=== PATIENT | male | born 1985 | race Caucasian/White ===

== ENCOUNTER 2020-11-13 15:46 | Outpatient (REF) | payer MEDICAID, SELFPAY ==
[2020-11-13 16:29] LABS: Influenza A PCR NEGATIVE (Negative); Influenza B PCR NEGATIVE (Negative); Resp Syncy Virus RNA Qual PCR NEGATIVE (Negative); SARS COV2 PCR INHOUSE NEGATIVE (Negative)
== END 2020-11-13 15:47 | disposition home or self-care (01) ==
LOC: HO.LNP 15:46
PROVIDERS: Visit Provider Internal Medicine
DX: Z20.822 Contact with and (suspected) exposure to COVID-19 (principal)
CPT/HCPCS: 0241U

== ENCOUNTER 2022-03-09 13:41 | Outpatient (REF) | payer MEDICAID, SELFPAY ==
--- NOTE | ~2022-03-09 | XR_ITS ---
EXAMINATION: XR CHEST 2 VIEWS CLINICAL INFORMATION: Cough. COMPARISON: Chest radiographs dated 04/12/2019. TECHNIQUE: Frontal and lateral views of the chest were obtained. FINDINGS: The heart, great vessels, pulmonary vasculature and mediastinum are normal. The lungs show no focal infiltrate, effusion or pneumothorax. There is no acute osseous abnormality. There is a moderately severe lower thoracic dextroscoliosis. XR/XR chest 2V IMPRESSION: No active cardiopulmonary disease.
== END 2022-03-09 13:42 | disposition home or self-care (01) ==
LOC: HO.XRAY 13:41
PROVIDERS: PCP Internal Medicine; Visit Provider Internal Medicine
DX: R05.9 Cough, unspecified (principal)
CPT/HCPCS: 71046

== ENCOUNTER 2022-05-16 08:24 | Outpatient (REF) | payer MEDICAID, SELFPAY ==
[2022-05-16 08:41] LABS: MANUAL DIFF FLAG NO
[2022-05-16 09:01] LABS: Basophils Percent Auto 0.3 % (0-2); Eosinophils Absolute Auto 0.2 X10*3/uL (0.0-0.4); Eosinophils Percent Auto 1.6 % (0-4); Hematocrit 44.2 % (42.0-52.0); Hemoglobin 14.2 g/dl (14.0-18.0); Imm Gran Abs Auto 0.03 X10*3/uL (0.00-0.03); Imm Gran Pct Auto 0.3 % (0.0-0.4); Lymphocytes Absolute Auto 3.3 X10*3/uL (1.2-4.9); Lymphocytes Percent Auto 31.2 % (20-40); Mean Corpuscular HGB Conc 32.1 g/dl (31.0-36.0); Mean Corpuscular Volume 90.4 fL (80.0-98.0); Mean Platelet Volume 9.9 fL (9.4-12.4); Monocytes Absolute Auto 0.5 X10*3/uL (0.1-1.2); Monocytes Percent Auto 5.1 % (2-11); Neutrophils Absolute Auto 6.5 x10*3/uL (2.0-8.3); Neutrophils Percent Auto 61.5 % (45-73); Platelet Count 287 X10*3/uL (160-400); Red Blood Count 4.89 X10*6/uL (4.60-5.80); Red Cell Distribution Width 13.1 % (11.0-16.0); White Blood Count 10.6 X10*3/uL (4.8-10.8)
[2022-05-16 09:37] LABS: Alanine Aminotransferase 77 U/L (0-40); Albumin Level 4.8 g/dL (3.5-5.0); Alkaline Phosphatase 82 U/L (39-117); Anion Gap 12 (12-20); Aspartate Amino Transferase 40 U/L (5-37); Bilirubin Total 1.3 mg/dL (0.0-1.0); Blood Urea Nitrogen 16 mg/dL (9-16); Calcium 9.4 mg/dL (8.4-10.2); Carbon Dioxide 30 mmol/L (22-29); Chloride 102 mmol/L (96-108); Cholesterol 233 mg/dL; Estimated Glomerular Filt Rate > 60; Glucose Fasting 88 mg/dL (60-99); HDL Cholesterol 39 mg/dL; LDL Cholesterol Calculated 164 mg/dl; Potassium 4.2 mmol/L (3.3-5.1); Sodium 140 mmol/L (135-145); Total Protein 7.3 g/dL (6.5-8.0); Triglycerides 154 mg/dL
== END 2022-05-16 08:25 | disposition home or self-care (01) ==
LOC: HO.LAB 08:24
PROVIDERS: PCP Internal Medicine; Visit Provider Internal Medicine
DX: E78.00 Pure hypercholesterolemia, unspecified (principal); K21.9 Gastro-esophageal reflux disease without esophagitis; R79.89 Other specified abnormal findings of blood chemistry
CPT/HCPCS: 36415; 80053; 80061; 85025

== ENCOUNTER → 2023-01-24 14:54 | Outpatient (REF) | payer MEDICAID, SELFPAY | LOC: HO.SL 14:54 | PROVIDERS: Visit Provider Internal Medicine | DX: G47.33 Obstructive sleep apnea (adult) (pediatric) (principal); R06.83 Snoring | CPT/HCPCS: 95806 ==

== ENCOUNTER → 2023-01-24 19:00 | Outpatient (BNV) | payer MEDICAID, SELFPAY | PROVIDERS: Visit Provider Internal Medicine | DX: G47.33 Obstructive sleep apnea (adult) (pediatric) (principal) | CPT/HCPCS: 95806 ==

== ENCOUNTER 2023-05-02 14:11 | Outpatient (AMB) | payer MEDICAID, SELFPAY ==
--- NOTE | 2023-05-01 21:08 | A.OFFVIS_ITS ---
Intake Vital Signs 3 05/02/23 14:17 Height 5 ft 10 in Weight 272 lb BMI 39.0 BP 118/64 Blood Pressure Location Rt brachial Position Sitting Pulse 102 H Pulse Source Pulse Oximeter Pulse Oximetry (%) 97 Oxygen Delivery Method Room Air Intake Visit Reasons: pulm eval for cpap Inside Sales Account Representative Required: No Nuclear Power Reactor Operator: Nuclear Power Reactor Operator offered & declined Accompanied by: Father Allergies brompheniramine [From Dimetapp (brompheniramine-PPA)] Adverse Reaction (Verified 05/02/23 14:24) hyperactivity phenylpropanolamine [From Dimetapp (brompheniramine-PPA)] Adverse Reaction (Verified 05/02/23 14:24) hyperactivity Medication List - Last Reconciled 05/02/23 by Jen Gao LPN diphenhydramine-acetaminophen 25-500 mg (Tylenol PM Extra Strength) 1 tab PO BEDTIME PRN melatonin 5 mg PO BEDTIME PRN omeprazole 40 mg PO DAILY venlafaxine 75 mg PO DAILY HPI pulm eval for cpap 2 HPI0 Details Jerald is a pleasant 38 year old male, never smoker, with underlying GERD, Asperger's syndrome and obesity. He was sent by PCP for pulmonary evaluation. He recently had a home sleep study for symptoms of loud snoring, significant day time fatigue and nonrestorative sleep. Results revealed mild obstructive sleep apnea with AHI of 12 and no significant hypoxemia. Patient presents to discuss CPAP therapy, accompanied by father. He denies any respiratory symptoms. He reports father with MARINE, otherwise no pertinent family history. [facility] Social History (Updated 05/02/23 @ 14:27 by Jen Gao LPN) Patient Tobacco Use Status: Never used Tobacco Review of Systems Const Denies chills, Denies excessive sweating, Denies fever(s), Denies headache(s) and Denies night sweats Eyes Denies dry eyes, Denies irritation and Denies itchy eyes ENT Reports Normal hearing present, Denies headache(s), Denies nasal congestion, Denies nasal discharge, Denies post nasal drip and Denies sore throat Card Denies chest pain, Denies chest pain at rest, Denies chest pain with activity, Denies claudication, Denies leg edema, Denies dyspnea, Denies dyspnea on exertion, Denies orthopnea and Denies paroxysmal nocturnal dyspnea Resp Denies chest congestion, Denies cough, Denies excessive phlegm production, Denies pain on inspiration, Denies pain with cough, Denies dyspnea, Denies dyspnea on exertion, Denies stridor and Denies wheezing Musc Denies myalgias Neuro Reports Normal hearing present and Denies headache(s) Endo Denies excessive sweating Robert/Lymph Denies lymphadenopathy Aller/Immun Denies itchy eyes, Denies seasonal rhinorrhea and Denies wheezing Physical Exam Vital Signs: Last Vital Signs Pulse 102 H 05/02/23 14:17 BP 118/64 05/02/23 14:17 Pulse Ox 97 05/02/23 14:17 Oxygen Delivery Method Room Air 05/02/23 14:17 BMI result Body Mass Index 39.0 Const General: cooperative, healthy appearing, comfortable, no acute distress, well developed and alert Nutritional Appearance: obese Orientation/consciousness: patient oriented x3 Limitations: no limitations HEENT Head: Yes normal to inspection, Yes normocephalic and Yes atraumatic Ears: hearing grossly normal bilaterally and external ears normal Eyes General: appearance normal, both eyes and all related structures Eyelids: Yes eyelids normal Sclerae: sclerae normal EOM: EOMs intact bilaterally Neck Neck: Yes normal visual inspection and Yes no lymphadenopathy Lymphatic: no lymphadenopathy noted Chest Chest palpation & inspection: normal inspection of the chest Resp Effort & Inspection: normal respiratory effort, able to speak in complete sentences, no audible wheezes, no cough, no stridor, not tachypneic, no tripod positioning and no use of accessory muscles Auscultation: clear to auscultation bilaterally Cardio Jugular venous distension: no JVD Rate: regular rate Rhythm: regular rhythm Skin Other: warm, dry General skin exam: no rashes or lesions noted Neuro General: patient oriented x3 Cranial nerves: Yes Normal hearing present Cognition (Neuro): normal cognition Gait exam (Neuro): Normal gait present Extrem General: Yes normal to inspection, Yes capillary refill normal, Yes no clubbing, cyanosis or edema and Yes no pedal edema Psych Appearance: grossly normal and well kempt Speech and movement: Normal speech and movement present and Clear speech present Affect: normal affect Attitude: cooperative Thought process: Normal thought process present Thought content: Normal thought content present Insight: Good insight present (Psych) Judgement: Good judgement present (Psych) Results Reviewed Results Reviewed: Assessment & Plan Assessment & Plan (1) Obstructive sleep apnea: Code(s): G47.33 - Obstructive sleep apnea (adult) (pediatric) Plan Reviewed sleep study results with patient which revealed an AHI of 12. Since patient is quite symptomatic, will start CPAP therapy. Will send in prescription to [facility] for APAP mode and pressure settings of 6-16 cm with close monitoring for compliance and benefits. Sleep hygiene education reviewed. He is aware if there are any issues with the mask or CPAP machine, he will call the office. All questions were answered and patient is in agreement of plan. Will follow up in 8-10 weeks or sooner if needed. Coding Level of Care Code New Pt Level 3 (25470) Diagnoses Obstructive sleep apnea G47.33
[2023-05-02 14:17] VITALS: BP 118/64; PULSE 102; O2SAT 97; BMI 39.0
== END 2023-05-02 15:11 | disposition home or self-care (01) ==
PROVIDERS: PCP Internal Medicine; Visit Provider Nurse Practitioner Family
DX: G47.33 Obstructive sleep apnea (adult) (pediatric) (principal)
CPT/HCPCS: 99203

== ENCOUNTER → 2023-05-02 14:11 | Outpatient (BNVA) | payer MEDICAID, SELFPAY | PROVIDERS: Visit Provider Nurse Practitioner Family | DX: G47.33 Obstructive sleep apnea (adult) (pediatric) (principal); K21.9 Gastro-esophageal reflux disease without esophagitis; Z99.89 Dependence on other enabling machines and devices | CPT/HCPCS: 99212 ==

== ENCOUNTER 2023-06-27 13:59 | Outpatient (AMB) | payer MEDICAID, SELFPAY ==
[2023-06-27 14:03] VITALS: BP 112/76; PULSE 88; O2SAT 97; BMI 39.2
--- NOTE | 2023-06-27 14:03 | MHC.OFFVIS ---
Vital Signs 06/27/23 14:03 Height 5 ft 10 in Weight 273 lb 6 oz BMI 39.2 BP 112/76 Blood Pressure Location Rt brachial Position Sitting Pulse 88 Pulse Source Pulse Oximeter Pulse Oximetry (%) 97 Oxygen Delivery Method Room Air Intake Visit Reasons: pulm eval for cpap Allergies brompheniramine [From Dimetapp (brompheniramine-PPA)] Adverse Reaction (Verified 06/27/23 14:05) hyperactivity phenylpropanolamine [From Dimetapp (brompheniramine-PPA)] Adverse Reaction (Verified 06/27/23 14:05) hyperactivity HPI HPI pulm eval for cpap: Details: Jerald is a pleasant 38 year old male, never smoker, with underlying GERD, Asperger's syndrome and obesity. He was sent by PCP for pulmonary evaluation. At the last visit, he had a sleep study that revealed mild MARINE and due to patients symptoms of loud snoring, significant day time fatigue and nonrestorative sleep, he was started on CPAP therapy. His [employer] company is [facility]. Today he presents to review compliance of CPAP therapy. He denies any respiratory symptoms. [facility] Social History Patient Tobacco Use Status: Never used Tobacco Review of Systems Const Denies chills, Denies excessive sweating, Denies fever(s), Denies headache(s) and Denies night sweats Eyes Denies dry eyes, Denies irritation and Denies itchy eyes ENT Reports Normal hearing present, Denies headache(s), Denies nasal congestion, Denies nasal discharge, Denies post nasal drip and Denies sore throat Card Denies chest pain, Denies chest pain at rest, Denies chest pain with activity, Denies claudication, Denies leg edema, Denies dyspnea, Denies dyspnea on exertion, Denies orthopnea and Denies paroxysmal nocturnal dyspnea Resp Denies chest congestion, Denies cough, Denies excessive phlegm production, Denies pain on inspiration, Denies pain with cough, Denies dyspnea, Denies dyspnea on exertion, Denies stridor and Denies wheezing Musc Denies myalgias Neuro Reports Normal hearing present and Denies headache(s) Endo Denies excessive sweating Robert/Lymph Denies lymphadenopathy Aller/Immun Denies itchy eyes, Denies seasonal rhinorrhea and Denies wheezing Physical Exam Vital Signs: Last Vital Signs Pulse 88 06/27/23 14:03 BP 112/76 06/27/23 14:03 Pulse Ox 97 06/27/23 14:03 Oxygen Delivery Method Room Air 06/27/23 14:03 BMI result Body Mass Index 39.2 Const General: cooperative, healthy appearing, comfortable, no acute distress, well developed and alert Nutritional Appearance: obese Orientation/consciousness: patient oriented x3 Limitations: no limitations HEENT Head: Yes normal to inspection, Yes normocephalic and Yes atraumatic Ears: hearing grossly normal bilaterally and external ears normal Eyes General: appearance normal, both eyes and all related structures Eyelids: Yes eyelids normal Sclerae: sclerae normal EOM: EOMs intact bilaterally Neck Neck: Yes normal visual inspection and Yes no lymphadenopathy Lymphatic: no lymphadenopathy noted Chest Chest palpation & inspection: normal inspection of the chest Resp Effort & Inspection: normal respiratory effort, able to speak in complete sentences, no audible wheezes, no cough, no stridor, not tachypneic, no tripod positioning and no use of accessory muscles Auscultation: clear to auscultation bilaterally Cardio Jugular venous distension: no JVD Rate: regular rate Rhythm: regular rhythm Skin Other: warm, dry General skin exam: no rashes or lesions noted Neuro General: patient oriented x3 Cranial nerves: Yes Normal hearing present Cognition (Neuro): normal cognition Gait exam (Neuro): Normal gait present Extrem General: Yes normal to inspection, Yes capillary refill normal, Yes no clubbing, cyanosis or edema and Yes no pedal edema Psych Appearance: grossly normal and well kempt Speech and movement: Normal speech and movement present and Clear speech present Affect: normal affect Attitude: cooperative Thought process: Normal thought process present Thought content: Normal thought content present Insight: Good insight present (Psych) Judgement: Good judgement present (Psych) Assessment & Plan Assessment & Plan (1) Obstructive sleep apnea: Code(s): G47.33 - Obstructive sleep apnea (adult) (pediatric) Category: Medical Plan Reviewed CPAP compliance report which revealed poor compliance. He reports significant difficulty using nasal pillows despite trialing different sizes. He continues to report leakage with use. Advised patient to reach out to [facility] to obtain different masks to trial for better compliance. He was agreeable to this and is motivated to be more compliant. Of note, he has been traveling quite frequently which contributed to his poor compliance. All questions were answered and patient is in agreement of plan. Will follow up in 6-8 weeks or sooner if needed. Coding Level of Care Code Est Pt Level 3 (85373) Diagnoses Obstructive sleep apnea G47.33
== END 2023-06-27 14:59 | disposition home or self-care (01) ==
PROVIDERS: PCP Internal Medicine; Visit Provider Nurse Practitioner Family
DX: G47.33 Obstructive sleep apnea (adult) (pediatric) (principal)
CPT/HCPCS: 99213

== ENCOUNTER → 2023-06-27 13:59 | Outpatient (BNVA) | payer MEDICAID, SELFPAY | PROVIDERS: PCP Internal Medicine; Visit Provider Nurse Practitioner Family | DX: G47.33 Obstructive sleep apnea (adult) (pediatric) (principal) | CPT/HCPCS: 99212 ==

== ENCOUNTER 2023-08-15 14:17 | Outpatient (AMB) | payer MEDICAID, SELFPAY ==
--- NOTE | 2023-08-15 14:18 | A.OFFVIS_ITS ---
Vital Signs 08/15/23 14:19 Height 5 ft 10 in Weight 273 lb BMI 39.2 BP 116/78 Blood Pressure Location Lt brachial Position Sitting Pulse 100 Pulse Source Pulse Oximeter Pulse Oximetry (%) 97 Oxygen Delivery Method Room Air Intake Visit Reasons: Obstructive sleep apnea Allergies brompheniramine [From Dimetapp (brompheniramine-PPA)] Adverse Reaction (Verified 08/15/23 14:21) hyperactivity phenylpropanolamine [From Dimetapp (brompheniramine-PPA)] Adverse Reaction (Verified 08/15/23 14:21) hyperactivity HPI HPI Obstructive sleep apnea: Details: Jerald is a pleasant 38 year old male, never smoker, with underlying MARINE, GERD, Asperger's syndrome and obesity. He was started on CPAP therapy for mild MARINE and persistent loud snoring, significant day time fatigue and nonrestorative sleep. He has had difficulties with compliance due to traveling as well as trialing different masks and recently with URI. He reports productive cough with clear sputum and nasal congestion likely related to viral infection vs allergies. He denies wheezing, dyspnea or chest tightness. He notes that he believes the nasal mask he has recently received will allow him to be more compliant. He also notes that he has been in contact with [facility] in attempts to be more compliant with therapy. He is aware of insurance criteria for compliance. [facility] Social History Patient Tobacco Use Status: Never used Tobacco Review of Systems Const Denies chills, Denies excessive sweating, Denies fever(s), Denies headache(s) and Denies night sweats Eyes Denies dry eyes, Denies irritation and Denies itchy eyes ENT Reports Normal hearing present, Denies headache(s), Denies nasal congestion, Denies nasal discharge, Denies post nasal drip and Denies sore throat Card Denies chest pain, Denies chest pain at rest, Denies chest pain with activity, Denies claudication, Denies leg edema, Denies dyspnea, Denies dyspnea on exertion, Denies orthopnea and Denies paroxysmal nocturnal dyspnea Resp Denies chest congestion, Denies cough, Denies excessive phlegm production, Denies pain on inspiration, Denies pain with cough, Denies dyspnea, Denies dyspnea on exertion, Denies stridor and Denies wheezing Musc Denies myalgias Neuro Reports Normal hearing present and Denies headache(s) Endo Denies excessive sweating Robert/Lymph Denies lymphadenopathy Aller/Immun Denies itchy eyes, Denies seasonal rhinorrhea and Denies wheezing Physical Exam Vital Signs: Last Vital Signs Pulse 100 08/15/23 14:19 BP 116/78 08/15/23 14:19 Pulse Ox 97 08/15/23 14:19 Oxygen Delivery Method Room Air 08/15/23 14:19 BMI result Body Mass Index 39.2 Const General: cooperative, healthy appearing, comfortable, no acute distress, well developed and alert Nutritional Appearance: obese Orientation/consciousness: patient oriented x3 Limitations: no limitations HEENT Head: Yes normal to inspection, Yes normocephalic and Yes atraumatic Ears: hearing grossly normal bilaterally and external ears normal Eyes General: appearance normal, both eyes and all related structures Eyelids: Yes eyelids normal Sclerae: sclerae normal EOM: EOMs intact bilaterally Neck Neck: Yes normal visual inspection and Yes no lymphadenopathy Lymphatic: no lymphadenopathy noted Chest Chest palpation & inspection: normal inspection of the chest Resp Effort & Inspection: normal respiratory effort, able to speak in complete sentences, no audible wheezes, no cough, no stridor, not tachypneic, no tripod positioning and no use of accessory muscles Auscultation: clear to auscultation bilaterally Cardio Jugular venous distension: no JVD Rate: regular rate Rhythm: regular rhythm Skin Other: warm, dry General skin exam: no rashes or lesions noted Neuro General: patient oriented x3 Cranial nerves: Yes Normal hearing present Cognition (Neuro): normal cognition Gait exam (Neuro): Normal gait present Extrem General: Yes normal to inspection, Yes capillary refill normal, Yes no clubbing, cyanosis or edema and Yes no pedal edema Psych Appearance: grossly normal and well kempt Speech and movement: Normal speech and movement present and Clear speech present Affect: normal affect Attitude: cooperative Thought process: Normal thought process present Thought content: Normal thought content present Insight: Good insight present (Psych) Judgement: Good judgement present (Psych) Assessment & Plan Assessment & Plan (1) Obstructive sleep apnea: Code(s): G47.33 - Obstructive sleep apnea (adult) (pediatric) Category: Medical Plan Reviewed CPAP compliance report which again revealed poor compliance. He previously reported significant difficulty using nasal pillows and had switched to a different nasal mask with better fit/comfort. He is aware of insurance compliance criteria and aware he has not been meeting this criteria but is motivated to be more compliant, now with the new mask. All questions were answered and patient is in agreement of plan. Will follow up in 6-8 weeks or sooner if needed. Coding Level of Care Code Est Pt Level 3 (67038) Diagnoses Obstructive sleep apnea G47.33
[2023-08-15 14:19] VITALS: BP 116/78; PULSE 100; O2SAT 97; BMI 39.2
== END 2023-08-15 14:44 | disposition home or self-care (01) ==
PROVIDERS: PCP Internal Medicine; Visit Provider Nurse Practitioner Family
DX: G47.33 Obstructive sleep apnea (adult) (pediatric) (principal)
CPT/HCPCS: 99213

== ENCOUNTER → 2023-08-15 14:17 | Outpatient (BNVA) | payer MEDICAID, SELFPAY | PROVIDERS: PCP Internal Medicine; Visit Provider Nurse Practitioner Family | DX: G47.33 Obstructive sleep apnea (adult) (pediatric) (principal) | CPT/HCPCS: 99212 ==

== ENCOUNTER 2023-12-01 15:11 | Outpatient (AMB) | payer MEDICAID, SELFPAY ==
--- NOTE | 2023-12-01 15:13 | A.OFFVIS_ITS ---
Vital Signs 12/01/23 15:14 Height 5 ft 10 in Weight 278 lb 6 oz BMI 39.9 BP 120/76 Blood Pressure Location Rt brachial Position Sitting Pulse 101 H Pulse Source Pulse Oximeter Pulse Oximetry (%) 94 Oxygen Delivery Method Room Air Intake Visit Reasons: Obstructive sleep apnea Allergies brompheniramine [From Dimetapp (brompheniramine-PPA)] Adverse Reaction (Verified 12/01/23 15:16) hyperactivity phenylpropanolamine [From Dimetapp (brompheniramine-PPA)] Adverse Reaction (Verified 12/01/23 15:16) hyperactivity HPI HPI Obstructive sleep apnea: Details: Jerald is a pleasant 38 year old male, never smoker, with underlying MARINE, GERD, Asperger's syndrome and obesity. He was started on CPAP therapy for mild MARINE and persistent loud snoring, significant day time fatigue and nonrestorative sleep. He continues to have difficulties with compliance due to sensory issues as well as nasal congestion. He reports that recently he has been able to use for longer stretches at nighttime as he is getting use to therapy and his new mask. He feels as though his current mask has been the most comfortable with less sensory complaints. He does note that his left nostril always seems congested and feels this is contributing to lack of compliance. He is requesting referral to ENT for evaluation. He currently denies any respiratory symptoms. He denies any visits to urgent care hospitalizations related to respiratory complaints. [facility] Social History Patient Tobacco Use Status: Never used Tobacco Review of Systems Const Denies chills, Denies excessive sweating, Denies fever(s), Denies headache(s) and Denies night sweats Eyes Denies dry eyes, Denies irritation and Denies itchy eyes ENT Reports Normal hearing present, Denies headache(s), Denies post nasal drip and Denies sore throat Card Denies chest pain, Denies chest pain at rest, Denies chest pain with activity, Denies claudication, Denies leg edema, Denies dyspnea, Denies dyspnea on exertion, Denies orthopnea and Denies paroxysmal nocturnal dyspnea Resp Denies chest congestion, Denies cough, Denies excessive phlegm production, Denies pain on inspiration, Denies pain with cough, Denies dyspnea, Denies dyspnea on exertion, Denies stridor and Denies wheezing Musc Denies myalgias Neuro Reports Normal hearing present and Denies headache(s) Endo Denies excessive sweating Robert/Lymph Denies lymphadenopathy Aller/Immun Denies itchy eyes, Denies seasonal rhinorrhea and Denies wheezing Physical Exam Vital Signs: Last Vital Signs Pulse 101 H 12/01/23 15:14 BP 120/76 12/01/23 15:14 Pulse Ox 94 12/01/23 15:14 Oxygen Delivery Method Room Air 12/01/23 15:14 BMI result Body Mass Index 39.9 Const General: cooperative, healthy appearing, comfortable, no acute distress, well developed and alert Nutritional Appearance: obese Orientation/consciousness: patient oriented x3 Limitations: no limitations HEENT Head: Yes normal to inspection, Yes normocephalic and Yes atraumatic Ears: hearing grossly normal bilaterally and external ears normal Eyes General: appearance normal, both eyes and all related structures Eyelids: Yes eyelids normal Sclerae: sclerae normal EOM: EOMs intact bilaterally Neck Neck: Yes normal visual inspection and Yes no lymphadenopathy Lymphatic: no lymphadenopathy noted Chest Chest palpation & inspection: normal inspection of the chest Resp Effort & Inspection: normal respiratory effort, able to speak in complete sentences, no audible wheezes, no cough, no stridor, not tachypneic, no tripod positioning and no use of accessory muscles Auscultation: clear to auscultation bilaterally Cardio Jugular venous distension: no JVD Rate: regular rate Rhythm: regular rhythm Skin Other: warm, dry General skin exam: no rashes or lesions noted Neuro General: patient oriented x3 Cranial nerves: Yes Normal hearing present Cognition (Neuro): normal cognition Gait exam (Neuro): Normal gait present Extrem General: Yes normal to inspection, Yes capillary refill normal, Yes no clubbing, cyanosis or edema and Yes no pedal edema Psych Appearance: grossly normal and well kempt Speech and movement: Normal speech and movement present and Clear speech present Affect: normal affect Attitude: cooperative Thought process: Normal thought process present Thought content: Normal thought content present Insight: Good insight present (Psych) Judgement: Good judgement present (Psych) Assessment & Plan Assessment & Plan (1) Obstructive sleep apnea: Code(s): G47.33 - Obstructive sleep apnea (adult) (pediatric) Category: Medical (2) Chronic sinusitis: Code(s): J32.9 - Chronic sinusitis, unspecified Category: Medical Plan Reviewed CPAP compliance report which again revealed poor compliance. He is aware of insurance compliance criteria and aware he has not been meeting this criteria but is motivated to be more compliant, now with the new mask and less sensory complaints. He also notes chronic sinus issues preventing him from being more compliant requesting referral to ENT. Will enter this. All questions were answered and patient is in agreement of plan. Will follow up in 6-8 weeks or sooner if needed. Orders: Referrals Ear/Nose/Throat Referral J32.9 - Chronic sinusitis, unspecified Coding Level of Care Code Est Pt Level 3 (90312) Diagnoses Obstructive sleep apnea G47.33 Chronic sinusitis J32.9
[2023-12-01 15:14] VITALS: BP 120/76; PULSE 101; O2SAT 94; BMI 39.9
== END 2023-12-01 15:40 | disposition home or self-care (01) ==
PROVIDERS: PCP Internal Medicine; Visit Provider Nurse Practitioner Family
DX: G47.33 Obstructive sleep apnea (adult) (pediatric) (principal); J32.9 Chronic sinusitis, unspecified
CPT/HCPCS: 99213

== ENCOUNTER → 2023-12-01 15:11 | Outpatient (BNVA) | payer MEDICAID, SELFPAY | PROVIDERS: PCP Internal Medicine; Visit Provider Nurse Practitioner Family | DX: G47.33 Obstructive sleep apnea (adult) (pediatric) (principal); J32.9 Chronic sinusitis, unspecified | CPT/HCPCS: 99212 ==

== ENCOUNTER 2024-03-01 15:15 | Outpatient (AMB) | payer MEDICAID, SELFPAY ==
[2024-03-01 15:18] VITALS: BP 124/62; PULSE 100; O2SAT 97; BMI 39.9
--- NOTE | 2024-03-01 15:18 | MHC.OFFVIS ---
Vital Signs 03/01/24 15:18 Height 5 ft 10 in Weight 278 lb BMI 39.9 BP 124/62 Blood Pressure Location Lt brachial Position Sitting Pulse 100 Pulse Source Pulse Oximeter Pulse Oximetry (%) 97 Oxygen Delivery Method Room Air Intake Visit Reasons: Obstructive sleep apnea Assembly Person Required: No Community Engagement Representative: Community Engagement Representative offered & declined Accompanied by: Self / Same As Patient Allergies brompheniramine [From Dimetapp (brompheniramine-PPA)] Adverse Reaction (Verified 03/01/24 15:20) hyperactivity phenylpropanolamine [From Dimetapp (brompheniramine-PPA)] Adverse Reaction (Verified 03/01/24 15:20) hyperactivity Medication List - Last Reconciled 03/01/24 by Jen Gao LPN cetirizine (Zyrtec) 10 mg PO DAILY PRN cholecalciferol (vitamin D3) 75 mcg PO DAILY diphenhydramine-acetaminophen 25-500 mg (Tylenol PM Extra Strength) 1 tab PO BEDTIME PRN melatonin 5 mg PO BEDTIME PRN omeprazole 40 mg PO DAILY venlafaxine 75 mg PO DAILY HPI HPI Obstructive sleep apnea: Details: Jerald is a pleasant 38 year old male, never smoker, with underlying MARINE, GERD, Asperger's syndrome and obesity. He has been using CPAP therapy for mild MARINE as he reported persistent loud snoring, significant day time fatigue and nonrestorative sleep. When using consistently he has noticed improvements in daytime fatigue, taking less naps however continues to have difficulties with compliance due to sensory issues as well as nasal congestion. He has been using nasal spray with moderate effect and has an upcoming evaluation with ENT. He also noted that in January he had the flu and was unable to use. He is motivated to be compliant. At this time, he denies any respiratory symptoms. He denies any visits to urgent care hospitalizations related to respiratory complaints. [facility] Social History Patient Tobacco Use Status: Never used Tobacco Review of Systems Const Denies chills, Denies excessive sweating, Denies fever(s), Denies headache(s) and Denies night sweats Eyes Denies dry eyes, Denies irritation and Denies itchy eyes ENT Reports Normal hearing present, Denies headache(s), Reports nasal congestion, Denies nasal discharge, Denies post nasal drip and Denies sore throat Card Denies chest pain, Denies chest pain at rest, Denies chest pain with activity, Denies claudication, Denies leg edema, Denies dyspnea, Denies dyspnea on exertion, Denies orthopnea and Denies paroxysmal nocturnal dyspnea Resp Denies chest congestion, Denies cough, Denies excessive phlegm production, Denies pain on inspiration, Denies pain with cough, Denies dyspnea, Denies dyspnea on exertion, Denies stridor and Denies wheezing Musc Denies myalgias Neuro Reports Normal hearing present and Denies headache(s) Endo Denies excessive sweating Robert/Lymph Denies lymphadenopathy Aller/Immun Denies itchy eyes, Denies seasonal rhinorrhea and Denies wheezing Physical Exam Vital Signs: Last Vital Signs Pulse 100 03/01/24 15:18 BP 124/62 03/01/24 15:18 Pulse Ox 97 03/01/24 15:18 Oxygen Delivery Method Room Air 03/01/24 15:18 BMI result Body Mass Index 39.9 Const General: cooperative, healthy appearing, comfortable, no acute distress, well developed and alert Nutritional Appearance: obese Orientation/consciousness: patient oriented x3 Limitations: no limitations HEENT Head: Yes normal to inspection, Yes normocephalic and Yes atraumatic Ears: hearing grossly normal bilaterally and external ears normal Eyes General: appearance normal, both eyes and all related structures Eyelids: Yes eyelids normal Sclerae: sclerae normal EOM: EOMs intact bilaterally Neck Neck: Yes normal visual inspection and Yes no lymphadenopathy Lymphatic: no lymphadenopathy noted Chest Chest palpation & inspection: normal inspection of the chest Resp Effort & Inspection: normal respiratory effort, able to speak in complete sentences, no audible wheezes, no cough, no stridor, not tachypneic, no tripod positioning and no use of accessory muscles Auscultation: clear to auscultation bilaterally Cardio Jugular venous distension: no JVD Rate: regular rate Rhythm: regular rhythm Skin Other: warm, dry General skin exam: no rashes or lesions noted Neuro General: patient oriented x3 Cranial nerves: Yes Normal hearing present Cognition (Neuro): normal cognition Gait exam (Neuro): Normal gait present Extrem General: Yes normal to inspection, Yes capillary refill normal, Yes no clubbing, cyanosis or edema and Yes no pedal edema Psych Appearance: grossly normal and well kempt Speech and movement: Normal speech and movement present and Clear speech present Affect: normal affect Attitude: cooperative Thought process: Normal thought process present Thought content: Normal thought content present Insight: Good insight present (Psych) Judgement: Good judgement present (Psych) Assessment & Plan Assessment & Plan (1) Obstructive sleep apnea: Code(s): G47.33 - Obstructive sleep apnea (adult) (pediatric) Category: Medical (2) Chronic sinusitis: Code(s): J32.9 - Chronic sinusitis, unspecified Category: Medical Plan Reviewed CPAP compliance report which again revealed poor compliance. He is aware of insurance compliance criteria and aware he has not been meeting this criteria but is motivated to be more compliant, he again is trialing a different mask which he believes will allow him to be more compliant. He continues to report chronic sinus issues preventing him from being more compliant and will be evaluated by ENT. All questions were answered and patient is in agreement of plan. Will follow up in 3 months or sooner if needed. Coding Level of Care Code Est Pt Level 4 (11981) Diagnoses Obstructive sleep apnea G47.33 Chronic sinusitis J32.9
--- OUTSIDE RECORDS SUMMARY | 2024-03-01 16:20 | XMS_ITS | Clinical Summary ---
Author Organization [facility] Address [address] [place] [phone] Phone Care Team Providers Care Inventory Control Associate Name Role Phone Jordan Quinones MD Primary Care Provider Unavailabl e Immunizations Name Administration Dates Next Due DTP 09/05/1996, 7,06/05/1996,02/05,01/05/1990 Hep B, ped/adol 05/06/1998,02/05/1998,01/05/1998 Hib (PRP-T) 01/05/1990 IPV 08/05/1996, 7,02/06/1992,08/05 MMR 06/02/1998,11/05/1997 Meningococcal Conj (Menactra) MCV4P 12/08/2005 Td (adult) (Tenivac), 5 Lf t etanus toxoid, PF, adsorbed 06/02/1998 Family History Relation Name Status Comments Father Alive Father: Elevate d cholesterol Mother Alive Mother: Multipl e Sclerosis / Migraines/ Obesity Sister Alive Sister: Diabete s mellitus Social History Tobacco Use Types Packs/Day Years Used Date Smoking Tobacco: Never Assessed Sex and Gender Information Value Date Recorded Sex Assigned at Not on file Legal Sex Male 4:15 PM EDT Gender Identity Not on file Sexual Orientation Not on file Plan of Treatment Health Maintenance Due Date Last Done Comments Varicella Vaccines (1 of 2 - 13+ 2-dose series) 1999 Consider Men B Vaccine (1 of 2 - Bexsero 2-dose series) 2002 DTaP,Tdap,and Td Vaccines (7 - Tdap) 06/02/2008 06/02/1998, 09/05/1996, 08/05/1996, Additional history exists Influenza Vaccines (#1) 2023 COVID-19 Vaccine ( season) 2023 HIB Vaccines Completed 01/05/1990 IPV Vaccines Completed 08/05/1996, 05/09, 02/06/1992, Additional history exists Hepatitis B Vaccines Completed 05/06/1998, 02/05/1998, 01/05/1998 MMR Vaccines Completed 06/02/1998, 11/05/1997 Meningococcal Vaccine Aged Out 12/08/2005 No myrtle alvaro eligible based on patient's age to complete this topic HPV Vaccines Aged Out No longer eligi ble based on patient's age to complete this topic Hepatitis A Vaccines Aged Out No long er eligible based on patient's age to complete this topic Men B Vaccine Aged Out No longer elig ible based on patient's age to complete this topic Pneumococcal Vaccine Aged Out No long er eligible based on patient's age to complete this topic Care Teams Inventory Control Associate Relationship Specialty Start Date End Date Jordan Quinones MD PCP - General 09/16/16
--- OUTSIDE RECORDS SUMMARY | 2024-03-01 16:20 | XMS_ITS | Encounter Summary ---
Author Organization [facility] Address [address] [place] [phone] Phone Care Team Providers Care Marriage And Family Counselor Name Role Phone Jordan Quinones MD Primary Care Provider Unavailabl e Encounter Details Date Type Department Care Team (Late st Contact Info) Description 07/23/2009 Documentation EM Family Medicine [address] [place] [address] Family Medicine, Physician [address] [place], [place] [phone] Social History Tobacco Use Types Packs/Day Years Used Date Smoking Tobacco: Never Assessed Sex and Gender Information Value Date Recorded Sex Assigned at Not on file Legal Sex Male 4:15 PM EDT Gender Identity Not on file Sexual Orientation Not on file documented as of this encounter Plan of Treatment Not on file documented as of this encounter Visit Diagnoses Not on filedocumented in this encounter Care Teams Marriage And Family Counselor Relationship Specialty Start Date End Date Jordan Quinones MD PCP - General 09/16/16 documented as of this encounter
--- OUTSIDE RECORDS SUMMARY | 2024-03-01 16:20 | XMS_ITS | Encounter Summary ---
Author Organization [facility] Address [address] [place] [phone] Phone Care Team Providers Care Compensation Director Name Role Phone Jordan Quinones MD Primary Care Provider Unavailabl e Encounter Details Date Type Department Care Team (Late st Contact Info) Description 09/22/2016 Conversion Encounter [facility] - [address] [address] Social History Tobacco Use Types Packs/Day Years [...] on filedocumented in this encounter Care Teams Compensation Director Relationship Specialty Start Date End Date Jordan Quinones MD PCP - General 09/16/16 documented as of this encounter
== END 2024-03-01 16:02 | disposition home or self-care (01) ==
PROVIDERS: PCP Internal Medicine; Visit Provider Nurse Practitioner Family
DX: G47.33 Obstructive sleep apnea (adult) (pediatric) (principal); J32.9 Chronic sinusitis, unspecified
CPT/HCPCS: 99214

== ENCOUNTER → 2024-03-01 15:15 | Outpatient (BNVA) | payer MEDICAID, SELFPAY | PROVIDERS: PCP Internal Medicine; Visit Provider Nurse Practitioner Family | DX: G47.33 Obstructive sleep apnea (adult) (pediatric) (principal); J32.9 Chronic sinusitis, unspecified | CPT/HCPCS: 99212 ==

== ENCOUNTER 2024-07-09 15:34 | Outpatient (AMB) | payer MEDICAID, SELFPAY ==
--- NOTE | 2024-07-09 15:36 | MHC.PC.OV ---
Vital Signs 07/09/24 15:41 Height 5 ft 10 in Weight 122.924 kg BMI 38.9 BP 110/86 Respiration 14 Pulse 92 Pulse Source Pulse Oximeter Temp 96.4 F L Temp Source Temporal Artery Scan Pulse Oximetry (%) 98 Oxygen Delivery Method Room Air Intake Visit Reasons: Routine/ Trouble hearing Director Of Academic Support Required: No Accompanied by: Self / Same As Patient Allergies brompheniramine [From Dimetapp (brompheniramine-PPA)] Adverse Reaction (Verified 07/09/24 15:37) hyperactivity phenylpropanolamine [From Dimetapp (brompheniramine-PPA)] Adverse Reaction (Verified 07/09/24 15:37) hyperactivity Medication List - Last Reconciled 07/09/24 by YARELY Millard cetirizine (Zyrtec) 10 mg PO DAILY PRN cholecalciferol (vitamin D3) 75 mcg PO DAILY diphenhydramine-acetaminophen 25-500 mg (Tylenol PM Extra Strength) 1 tab PO BEDTIME PRN melatonin 5 mg PO BEDTIME PRN omeprazole 40 mg PO DAILY venlafaxine 75 mg PO DAILY HPI HPI Comments History of Present Illness Details 39-year-old male with history of Asperger's, elevated LFTs, obstructive sleep apnea, chronic sinusitis, hyperlipidemia, and depression/anxiety presents to the office today for management of chronic conditions as well as to establish care. He has been following with pulmonology regarding his obstructive sleep apnea is not always compliant with CPAP usage. He was referred to ENT for his chronic sinusitis but has not yet made an appointment. He does report ongoing postnasal drips which affects him negatively and occasionally uses Flonase as well as Zyrtec. He states he is beginning efforts towards weight loss eating healthier with light exercise. He is reporting muffled hearing of the left ear. No otalgia or otorrhea ROS: General: No fevers, malaise, unintentional weight loss HEENT: see hpi Cardiovascular: No chest pain, palpitations, or leg edema Respiratory: No shortness of breath, wheezing, cough GI: No abdominal pain, nausea, vomiting, diarrhea, constipation, melena, hematochezia : No dysuria, hematuria, increased urinary frequency, decreased urinary output MSK: No myalgia, back pain Neuro: No headaches, weakness, paresthesias Skin: No rashes or lesions EXAM: Constitutional - Awake and Alert, No apparent distress Eyes - PERRLA, EOMI Ears- external ears normal, bilateral cerumen impaction obstructing visual of the tympanic membranes Cardiovascular - S1S2, RRR, No edema Respiratory - Normal lung expansion, Normal respiratory effort, No respiratory distress, CTA bilaterally Extremities - no calf tenderness bilaterally, no swelling Skin - Warm/Dry Neurological - Alert & oriented x3 Psychological - Appropriate affect [facility] Medical History (Updated 07/10/24 @ 12:36 by YARELY Millard) Elevated LFTs Asperger's disorder Chronic sinusitis Obstructive sleep apnea Hyperlipidemia Social History Patient Tobacco Use Status: Never used Tobacco Questionnaire PHQ-9 Over the last 2 weeks, how often have you been bothered by any of the following problems? 1. Little interest or pleasure in doing things: several days 2. Feeling down, depressed, or hopeless: not at all 3. Trouble falling or staying asleep, or sleeping too much: more than half the days 4. Feeling tired or having little energy: more than half the days 5. Poor appetite or overeating: several days 6. Feeling bad about yourself - or that you are a failure or have let yourself or your family down: not at all 7. Trouble concentrating on things, such as reading the newspaper or watching television: not at all 8. Moving or speaking so slowly that other people could have noticed. Or the opposite - being so fidgety or restless that you have been moving around a lot more than usual: not at all 9. Thoughts that you would be better off or of hurting yourself in some way: not at all Total score: 6 Source: Developed by Drs. Juni Morgan, Emily Hua, Paul Guzman and colleagues, with an educational ashley from [employer]. LEI-7 AMB Questionnaire LEI-7 Date LEI - 7 assessed: 07/09/24 Feeling nervous, anxious, or on edge: 0 = Not at all Not being able to stop or control worryin = Not at all Worrying too much about different things: 0 = Not at all Trouble relaxin = Not at all Being so restless that it is hard to sit still: 0 = Not at all Becoming easily annoyed or irritable: 0 = Not at all Feeling afraid as if something awful might happen: 0 = Not at all Total LEI-7 score (0-4 normal; 5-9 mild; 10-14 moderate; 15-21 severe): 0 Source: Developed by Drs. Juni Morgan, Emily Hua, Paul Guzman and colleagues, with an educational ashley from [employer]. Physical exam (Primary Care) Vital Signs: Last Vital Signs Temp 96.4 F L 07/09/24 15:41 Pulse 92 07/09/24 15:41 Resp 14 07/09/24 15:41 BP 110/86 07/09/24 15:41 Pulse Ox 98 07/09/24 15:41 Oxygen Delivery Method Room Air 07/09/24 15:41 BMI result Body Mass Index 38.9 Tobacco/Smoking Status: Tobacco use Status Patient Tobacco Use Status Never used Tobacco 07/09/24 15:43 PHQ-9: PHQ-9 Score PHQ-9: Total score 6 07/09/24 16:28 Coding Level of Care Code New Pt Level 4 (80522) Complex EM visit Add On G2211 Diagnoses Hyperlipidemia E78.5 Chronic sinusitis J32.9 Obstructive sleep apnea G47.33 Cerumen impaction H61.20 Elevated LFTs R79.89 Assessment & Plan Assessment & Plan (1) Hyperlipidemia: Code(s): E78.5 - Hyperlipidemia, unspecified Category: Medical Plan: Lipid panel ordered. Recommend diet low in saturated fats and highly processed foods. Increase exercise efforts to facilitate weight loss (2) Chronic sinusitis: Code(s): J32.9 - Chronic sinusitis, unspecified Category: Medical Plan: Continue with Zyrtec and Flonase. Advised to schedule follow-up with ENT for further evaluation as this may also be affecting his MARINE (3) Obstructive sleep apnea: Code(s): G47.33 - Obstructive sleep apnea (adult) (pediatric) Category: Medical Plan: Continue following with pulmonology. Compliance with CPAP is stressed. Weight loss efforts also encouraged (4) Cerumen impaction: Code(s): H61.20 - Impacted cerumen, unspecified ear Category: Medical Plan: Debrox drops prescribed. Patient to return for cerumen irrigation. 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 Will reassess liver panel and check ultrasound of the right upper quadrant as well Plan Follow-up for ear lavage. Labs to be completed prior to visit today. Orders: Orders Hemoglobin A1c 07/09/24 E78.5 - Hyperlipidemia, unspecified, F84.5 - Asperger's syndrome, R79.89 - Other specified abnormal findings of blood chemistry Ferritin 07/09/24 E78.5 - Hyperlipidemia, unspecified, F84.5 - Asperger's syndrome, R79.89 - Other specified abnormal findings of blood chemistry Liver Panel 07/09/24 E78.5 - Hyperlipidemia, unspecified, F84.5 - Asperger's syndrome, R79.89 - Other specified abnormal findings of blood chemistry Basic Metabolic Panel 07/09/24 E78.5 - Hyperlipidemia, unspecified, F84.5 - Asperger's syndrome, R79.89 - Other specified abnormal findings of blood chemistry Complete Blood Count Auto Diff 07/09/24 E78.5 - Hyperlipidemia, unspecified, F84.5 - Asperger's syndrome, R79.89 - Other specified abnormal findings of blood chemistry Lipid Panel 07/09/24 E78.5 - Hyperlipidemia, unspecified, F84.5 - Asperger's syndrome, R79.89 - Other specified abnormal findings of blood chemistry US abdomen limited 07/09/24 R79.89 - Other specified abnormal findings of blood chemistry Medications: New carbamide peroxide 6.5% (Debrox) 5 drps otic (ear) left Q12H 15 mL 0RF 4 days
[2024-07-09 15:41] VITALS: BP 110/86; PULSE 92; RESP 14; TEMP 35.8; O2SAT 98; BMI 38.9
--- OUTSIDE RECORDS SUMMARY | 2024-07-09 16:57 | XMS_ITS | Clinical Summary ---
Author Organization [facility] Address [address] [place] [phone] Phone Care Team Providers Care Maintenance Services Dispatcher Name Role Phone Jordan Quinones MD Primary Care Provider Unavailabl e Immunizations Immunization Administration Dates Next Due DTP 09/05/1996, 7,06/05/1996,02/05,01/05/1990 [...] of 2 - 13+ 2-dose series) 1999 DTaP,Tdap,and Td Vaccines (7 - Tdap) 06/02/2008 06/02/1998, 09/05/1996, 08/05/1996, Additional history exists Influenza Vaccines (#1) 2023 COVID-19 Vaccine ( - 2023- season) 2023 HIB Vaccines Completed 01/05/1990 IPV [...] age to complete this topic Care Teams Maintenance Services Dispatcher Relationship Specialty Start Date End Date Jordan Quinones MD PCP - General 09/16/16
== END 2024-07-09 16:06 | disposition home or self-care (01) ==
LOC: HO.HMCHD 15:35
PROVIDERS: PCP Internal Medicine; Visit Provider Physician Assistant
DX: E78.5 Hyperlipidemia, unspecified (principal); J32.9 Chronic sinusitis, unspecified; G47.33 Obstructive sleep apnea (adult) (pediatric); H61.22 Impacted cerumen, left ear; R79.89 Other specified abnormal findings of blood chemistry

== ENCOUNTER → 2024-07-09 15:34 | Outpatient (BNVA) | payer MEDICAID, SELFPAY | PROVIDERS: PCP Internal Medicine; Visit Provider Physician Assistant | DX: G47.33 Obstructive sleep apnea (adult) (pediatric) (principal); E78.5 Hyperlipidemia, unspecified; J32.9 Chronic sinusitis, unspecified; H61.20 Impacted cerumen, unspecified ear; R79.89 Other specified abnormal findings of blood chemistry; F84.5 Asperger's syndrome; Z99.89 Dependence on other enabling machines and devices | CPT/HCPCS: 99212 ==

== ENCOUNTER 2024-07-15 13:53 | Outpatient (AMB) | payer MEDICAID, SELFPAY ==
--- NOTE | 2024-07-15 13:54 | A.OFFPC_ITS ---
Vital Signs 07/15/24 13:56 Height 5 ft 10 in Weight 122 kg BMI 38.6 BP 116/82 Respiration 14 Pulse 94 Pulse Source Pulse Oximeter Temp 97.9 F Pulse Oximetry (%) 96 Oxygen Delivery Method Room Air Intake Visit Reasons: 5 Day F/U Ear Wax Cleaning Manager Commission Required: No Accompanied by: Self / Same As Patient Allergies brompheniramine [From Dimetapp (brompheniramine-PPA)] Adverse Reaction (Verified 07/15/24 13:56) hyperactivity phenylpropanolamine [From Dimetapp (brompheniramine-PPA)] Adverse Reaction (Verified 07/15/24 13:56) hyperactivity HPI HPI Comments History of Present Illness Details 39 year old male presents to the office due to cerumen impaction. Was seen in the office last week and noted to have bilateral cerumen impaction L>R with associated muffled hearing. Has been using debrox drops. ROS: HEENT- see hpi EXAM: Constitutional - Awake and Alert, No apparent distress Ears - external ears normal. L ear with impacted cerumen obstructing visual of TM. R canal with partial impaction, some visual of the TM which appears pearly lewis and in tact Skin - Warm/Dry Neurological - Alert & oriented x3, CN II-XII in tact, 5/5 strength BUE and BLE Psychological - Appropriate affect [facility] Medical History (Updated 07/15/24 @ 14:21 by YARELY Millard) Elevated LFTs Asperger's disorder Chronic sinusitis Obstructive sleep apnea Hyperlipidemia Social History Patient Tobacco Use Status: Never used Tobacco Questionnaire LEI-7 AMB Questionnaire LEI-7 Date LEI - 7 assessed: 07/09/24 Source: Developed by Drs. Juni Morgan, Emily Hua, Paul Guzman and colleagues, with an educational ashley from [employer]. Physical exam (Primary Care) Vital Signs: Last Vital Signs Temp 97.9 F 07/15/24 13:56 Pulse 94 07/15/24 13:56 Resp 14 07/15/24 13:56 BP 116/82 07/15/24 13:56 Pulse Ox 96 07/15/24 13:56 Oxygen Delivery Method Room Air 07/15/24 13:56 BMI result Body Mass Index 38.6 Tobacco/Smoking Status: Tobacco use Status Patient Tobacco Use Status Never used Tobacco 07/15/24 13:58 Office Procedures Cerumen Removal From which ear canal was the cerumen removed: right Removal: irrigation and cerumen loop/spoon Notes: no complications [id number] Wax Removal by Spoon/Curette Coding Level of Care Code Est Pt Level 3 (44281) Diagnoses Cerumen impaction H61.20 Decreased hearing H91.90 CPT Codes Office Procedure - CPT: 02934-[id number] Wax Removal by Spoon/Curette ([id number]) Assessment & Plan Assessment & Plan (1) Cerumen impaction: Code(s): H61.20 - Impacted cerumen, unspecified ear Category: Medical Plan: Removed using lavage as well as curette with good effect. TMs are in tact, no significant erythema or evidence of trauma. Pt tolerated well, no lightheadedness/vertigo/pain. Improvement in hearing (2) Decreased hearing: Code(s): H91.90 - Unspecified hearing loss, unspecified ear Category: Medical Plan: Improvement following cerumen removal
[2024-07-15 13:56] VITALS: BP 116/82; PULSE 94; RESP 14; TEMP 36.6; O2SAT 96; BMI 38.6
--- OUTSIDE RECORDS SUMMARY | 2024-07-15 15:45 | XMS_ITS | Clinical Summary ---
Author Organization [facility] Address [address] [place] [phone] Phone Care Team Providers Care Wire Frame Lamp Shade Maker Name Role Phone Jordan Quinones MD Primary [...] age to complete this topic Care Teams Wire Frame Lamp Shade Maker Relationship Specialty Start Date End Date Jordan Quinones MD PCP - General 09/16/16
== END 2024-07-15 14:49 | disposition home or self-care (01) ==
LOC: HO.HMCHD 13:53
PROVIDERS: PCP Internal Medicine; Visit Provider Physician Assistant
DX: H61.23 Impacted cerumen, bilateral (principal); H91.93 Unspecified hearing loss, bilateral

== ENCOUNTER → 2024-07-15 13:53 | Outpatient (BNVA) | payer OTHER, SELFPAY | PROVIDERS: PCP Internal Medicine; Visit Provider Physician Assistant | DX: H61.21 Impacted cerumen, right ear (principal) | CPT/HCPCS: 69210; 99212 ==

== ENCOUNTER 2024-07-23 11:21 | Outpatient (REF) | payer OTHER, SELFPAY ==
--- NOTE | ~2024-07-23 | US_ITS ---
EXAMINATION: US ABDOMEN LIMITED CLINICAL INFORMATION: Abnormal findings on blood chemistry.. COMPARISON: None available. TECHNIQUE: Real-time ultrasound of the right upper quadrant abdomen using grayscale and color Doppler technique. Limited exam. FINDINGS: PANCREAS: No peripancreatic fluid collections. LIVER: Liver measures 18 cm by the system technologist. Increased echotexture. No gross nodular contour. No gross solid or cystic lesion identified by the technologist. No intrahepatic biliary ductal dilatation. GALLBLADDER: Fluid-filled. No pericholecystic fluid collection or gallbladder wall thickening. COMMON BILE DUCT: 3 mm. RIGHT KIDNEY: 11 cm. Normal echotexture. Normal renal cortical thickness. No hydronephrosis. No gross solid or cystic lesion detected. . FREE FLUID: None. US/US abdomen limited IMPRESSION: Hepatomegaly and steatosis. Hepatocellular dysfunction/disease cannot be excluded. No cholelithiasis. No hydronephrosis, right kidney. No ascites. Electronically signed by: Lizandro Lennon MD 07/23/2024 12:01 PM EDT
[2024-07-23 12:17] LABS: MANUAL DIFF FLAG NO
[2024-07-23 12:54] LABS: Basophils Percent Auto 0.4 % (0-2); Eosinophils Absolute Auto 0.1 X10*3/uL (0.0-0.4); Eosinophils Percent Auto 1.6 % (0-4); Hemoglobin 13.4 g/dl (14.0-18.0); Imm Gran Abs Auto 0.03 X10*3/uL (0.00-0.03); Imm Gran Pct Auto 0.4 % (0.0-0.4); Lymphocytes Absolute Auto 2.3 X10*3/uL (1.2-4.9); Lymphocytes Percent Auto 31.9 % (20-40); Mean Corpuscular HGB Conc 32.7 g/dl (31.0-36.0); Mean Corpuscular Hemoglobin 28.9 pg (27.0-33.0); Mean Corpuscular Volume 88.6 fL (80.0-98.0); Mean Platelet Volume 9.9 fL (9.4-12.4); Monocytes Absolute Auto 0.4 X10*3/uL (0.1-1.2); Monocytes Percent Auto 5.3 % (2-11); Neutrophils Absolute Auto 4.4 x10*3/uL (2.0-8.3); Neutrophils Percent Auto 60.4 % (45-73); Platelet Count 302 X10*3/uL (160-400); Red Blood Count 4.63 X10*6/uL (4.60-5.80); Red Cell Distribution Width 13.5 % (11.0-16.0); White Blood Count 7.3 X10*3/uL (4.8-10.8)
--- OUTSIDE RECORDS SUMMARY | 2024-07-23 13:00 | XMS_ITS | Clinical Summary ---
Author Organization [facility] Address [address] [place] [phone] Phone Care Team Providers Care Tile Mason Name Role Phone Jordan Quinones MD Primary [...] age to complete this topic Care Teams Tile Mason Relationship Specialty Start Date End Date Jordan Quinones MD PCP - General 09/16/16
[2024-07-23 13:06] LABS: Estimated Average Glucose 114 mg/dL; Hemoglobin A1c % 5.6 % (<6.0); Total Hemoglobin (HGBA1C) 3549.0838 umol/L
[2024-07-23 13:26] LABS: Alanine Aminotransferase 63 U/L (0-40); Albumin Level 4.7 g/dL (3.5-5.0); Alkaline Phosphatase 91 U/L (39-117); Anion Gap 10 (12-20); Aspartate Amino Transferase 45 U/L (5-37); Bilirubin Direct 0.4 mg/dL (0.0-0.5); Bilirubin Total 1.4 mg/dL (0.0-1.0); Blood Urea Nitrogen 13 mg/dL (9-16); Calcium 9.4 mg/dL (8.4-10.2); Carbon Dioxide 30 mmol/L (22-29); Chloride 106 mmol/L (96-108); Cholesterol 208 mg/dL (<200); Estimated Glomerular Filt Rate > 60; Glucose Random 95 mg/dL (60-115); HDL Cholesterol 38 mg/dL (>40); LDL Cholesterol Calculated 142 mg/dL (<100); Potassium 3.8 mmol/L (3.3-5.1); Sodium 142 mmol/L (135-145); Total Protein 7.4 g/dL (6.5-8.0); Triglycerides 143 mg/dL (<150)
[2024-07-23 13:44] LABS: Ferritin 337 ng/mL (20-250)
== END 2024-07-23 11:22 | disposition home or self-care (01) ==
LOC: HO.US 11:21
PROVIDERS: Visit Provider Physician Assistant
DX: R79.89 Other specified abnormal findings of blood chemistry (principal)
CPT/HCPCS: 36415; 76705; 80048; 80061; 80076; 82728; 83036; 85025

== ENCOUNTER → 2024-07-23 11:25 | Outpatient (BNV) | payer OTHER, SELFPAY | PROVIDERS: Visit Provider Radiology Diagnostic Radiology | DX: R16.0 Hepatomegaly, not elsewhere classified (principal) | CPT/HCPCS: 76705 ==

== ENCOUNTER 2024-08-20 14:56 | Outpatient (AMB) | payer OTHER, SELFPAY ==
[2024-08-20 15:01] VITALS: BP 110/74; PULSE 94; O2SAT 96; BMI 39.4
--- NOTE | 2024-08-20 15:01 | A.OFFVIS_ITS ---
Vital Signs 08/20/24 15:01 Height 5 ft 10 in Weight 274 lb 6 oz BMI 39.4 BP 110/74 Blood Pressure Location Lt brachial Position Sitting Pulse 94 Pulse Source Pulse Oximeter Pulse Oximetry (%) 96 Oxygen Delivery Method Room Air Intake Visit Reasons: Obstructive sleep apnea Allergies brompheniramine (From Dimetapp (brompheniramine-PPA)) Adverse Reaction (Verified 08/20/24 15:04) hyperactivity phenylpropanolamine (From Dimetapp (brompheniramine-PPA)) Adverse Reaction (Verified 08/20/24 15:04) hyperactivity HPI HPI Obstructive sleep apnea: Details: Jerald is a pleasant 39 year old male, never smoker, with underlying MARINE, GERD, Asperger's syndrome and obesity. He has been using CPAP therapy for mild MARINE as he reported persistent loud snoring, significant day time fatigue and nonrestorative sleep. When using consistently he has noticed improvements in daytime fatigue, taking less naps however continues to have difficulties with compliance due to sensory issues as well as nasal congestion. The patient has a history of a deviated nasal septum, which was evaluated by an ENT specialist who noted a slight deviation and a smaller nasal passage than ideal, but surgery was not deemed necessary. The patient was prescribed ipratropium nasal spray, which he has been using primarily at night with good effect thus far. He also notes issues with insurance lapses leading to discontinued use of CPAP therapy in the month of July however appears to be resolved and patient is motivated to tarun nue to use CPAP therapy. At this time he denies any respiratory symptoms. [facility] Medical History (Updated 07/15/24 @ 14:21 by YARELY Millard) Elevated LFTs Asperger's disorder Chronic sinusitis Obstructive sleep apnea Hyperlipidemia Social History Patient Tobacco Use Status: Never used Tobacco Review of Systems Const Denies chills, Denies excessive sweating, Denies fever(s), Denies headache(s) and Denies night sweats Eyes Denies dry eyes, Denies irritation and Denies itchy eyes ENT Reports Normal hearing present, Denies headache(s), Reports nasal congestion, Denies nasal discharge, Denies post nasal drip and Denies sore throat Card Denies chest pain, Denies chest pain at rest, Denies chest pain with activity, Denies claudication, Denies leg edema, Denies dyspnea, Denies dyspnea on exertion, Denies orthopnea and Denies paroxysmal nocturnal dyspnea Resp Denies chest congestion, Denies cough, Denies excessive phlegm production, Denies pain on inspiration, Denies pain with cough, Denies dyspnea, Denies dyspnea on exertion, Denies stridor and Denies wheezing Musc Denies myalgias Neuro Reports Normal hearing present and Denies headache(s) Endo Denies excessive sweating Robert/Lymph Denies lymphadenopathy Aller/Immun Denies itchy eyes, Denies seasonal rhinorrhea and Denies wheezing Physical Exam Vital Signs: Last Vital Signs Pulse 94 08/20/24 15:01 BP 110/74 08/20/24 15:01 Pulse Ox 96 08/20/24 15:01 Oxygen Delivery Method Room Air 08/20/24 15:01 BMI result Body Mass Index 39.4 Const General: cooperative, healthy appearing, comfortable, no acute distress, well developed and alert Nutritional Appearance: obese Orientation/consciousness: patient oriented x3 Limitations: no limitations HEENT Head: Yes normal to inspection, Yes normocephalic and Yes atraumatic Ears: hearing grossly normal bilaterally and external ears normal Eyes General: appearance normal, both eyes and all related structures Eyelids: Yes eyelids normal Sclerae: sclerae normal EOM: EOMs intact bilaterally Neck Neck: Yes normal visual inspection and Yes no lymphadenopathy Lymphatic: no lymphadenopathy noted Chest Chest palpation & inspection: normal inspection of the chest Resp Effort & Inspection: normal respiratory effort, able to speak in complete sentences, no audible wheezes, no cough, no stridor, not tachypneic, no tripod positioning and no use of accessory muscles Auscultation: clear to auscultation bilaterally Cardio Jugular venous distension: no JVD Rate: regular rate Rhythm: regular rhythm Skin Other: warm, dry General skin exam: no rashes or lesions noted Neuro General: patient oriented x3 Cranial nerves: Yes Normal hearing present Cognition (Neuro): normal cognition Gait exam (Neuro): Normal gait present Extrem General: Yes normal to inspection, Yes capillary refill normal, Yes no clubbing, cyanosis or edema and Yes no pedal edema Psych Appearance: grossly normal and well kempt Speech and movement: Normal speech and movement present and Clear speech present Affect: normal affect Attitude: cooperative Thought process: Normal thought process present Thought content: Normal thought content present Insight: Good insight present (Psych) Judgement: Good judgement present (Psych) Assessment & Plan Assessment & Plan (1) Obstructive sleep apnea: Code(s): G47.33 - Obstructive sleep apnea (adult) (pediatric) Category: Medical (2) Chronic sinusitis: Code(s): J32.9 - Chronic sinusitis, unspecified Category: Medical Plan Reviewed CPAP compliance report which again revealed poor compliance. He is aware of insurance compliance criteria and aware he has not been meeting this criteria but is motivated to be more compliant, he again is trialing different masks as well as recently starting ipratropium nasal spray for nasal congestion which he believes will allow him to be more compliant. All questions were answered and patient is in agreement of plan. Will follow up in 3 months or sooner if needed. Coding Level of Care Code Est Pt Level 3 (11323) Diagnoses Obstructive sleep apnea G47.33 Chronic sinusitis J32.9
--- OUTSIDE RECORDS SUMMARY | 2024-08-20 16:16 | XMS_ITS | Clinical Summary ---
Author Organization [facility] Address [address] [place] [phone] Phone Care Team Providers Care Store Protection Specialist Name Role Phone Jordan Quinones MD Primary [...] 06/02/2008 06/02/1998, 09/05/1996, 08/05/1996, Additional history exists COVID-19 Vaccine ( - season) 2023 Influenza Vaccines (#1) 2024 HIB Vaccines Completed 01/05/1990 IPV Vaccines Completed [...] age to complete this topic Care Teams Store Protection Specialist Relationship Specialty Start Date End Date Jordan Quinones MD PCP - General 09/16/16
--- OUTSIDE RECORDS SUMMARY | 2024-08-20 16:16 | XMS_ITS | Data Portability ---
Author Organization [place] - [facility], Allergy Address [address] [address] Care Team Providers Care Sand Slinger Operator Name Role Phone JOANN MARTINEZ Primary Care Provider Assessment Encounter Date Assessment Date Assessment LastModified by Organization Details LastModified Time 08/07/2024 08/07/2024 1. Obstructive Sleep Apnea and Post-Nasal Drip Increased CPAP machine humidification and nasal saline rinses should alleviate mucus production. Continued monitoring of nasal symptoms and adherence to Fluticasone therapy is recommended. Suggest trial of Atrovent-unlikely to have any allergy given sensitivity to Brompheniramine He will contact me through the portal and if he has persistent symptoms we can consider CT of sinuses 2. Asperger Syndrome Addressing sensory processing issues is vital for improving CPAP compliance. 3. Gastroesophageal Reflux Disease Continue current management protocols. 4. Depression Maintain management under mental health guidance. Procedure Documentation: - Nasal examination performed to inspect for polyps and assess nasal passage narrowing. No polyps identified, slight cartilage deviation observed. [email or web address] Not available 08/07/2024 15:54:05 Plan of Treatment Reminders Order Date Submit Date Provider Last Modified By Organization Details Last Modified Time Details Appointments None recorded. Lab None recorded. Referral None recorded. Procedures None recorded. Surgeries None recorded. Imaging None recorded. Medication Orders ipratropium bromide 21 mcg (0.03 %) nasal spray 2024 025 [facility]acy #[id number], [address] [facility], [place], [address], 15:13:48 Patient TargetsNo targets recorded. Patient Instructions Encounter Date Encounter Id Patient Instructions Last Modified By Organization Details Last Modified Time 08/07/2024 [id number] Please note: Parts of this encounter note have been generated by AI based on audio conversation. Patient consent was required prior to utilizing this technology. Content review was required prior to finalizing the note. [email or web address] Not available 08/07/2024 15:12:28 Reason for Referral None Reported. Problems Name Problem SNOMED Code Status Onset Date Resolution Date Notes Provider Name and Address Organization Details Recorded Time Obstructive sleep apnea syndrome 46142765 Active 2024 BRITT STEVEN MD [address] [facility],[address] [facility], [place], [address], [facility] - [facility] 15:08:56 Chronic rhinitis 61338815 Active 2024 BRITT STEVEN MD [address] [place] [address], [address], [place], [address], [facility] - [facility] 15:08:58 Asperger's disorder 99378325 Active 2024 BRITT STEVEN MD [address] [facility], [address], [place], [address], [facility] 15:11:26 Deviated nasal septum 119537562 Active 2024 BRITT STEVEN MD [address] [facility], [address], [place], [address], [facility] 15:15:07 Problem Notes None recorded. Medical Equipment None Reported. Allergies Allergen ID Allergen Name Allergen Category Reaction Reaction Severity Criticality Documentation Date Start Date Code Code System Note Provider Name and Address Organization Details Recorded Time [id number] brompheni ramine Not available Not available Not available Not available 08/07/2024 1767 RxNorm Arpita stone [place] [facility] 14:50:58 837100 phenylpro panolamin e medicatio n Not available Not available Not available 08/07/2024 8175 RxNorm Arpita stone [facility] 14:51:16 Medications Name Sig Start Date Stop Date Status Note LastModified by Organization Details LastModified Time venlafaxine 75 mg tablet TAKE 1 TABLET BY MOUTH EVERY DAY active Not Available Not Available No t Available Debrox 6.5 % ear drops INSTILL 5 DROPPERFU L TO LEFT EAR EVERY 12 HOURS FOR 4 DAYS active Not Available Not Available No t Available omeprazole 40 mg capsule,del ayed release TAKE 1 CAPSULE BY MOUTH EVERY DAY 08/07 completed Not Available Not Available Not Available omeprazole 20 mg capsule,del ayed release TAKE 1 CAPSULE BY MOUTH EVERY DAY BEFORE BREAKFAST active Not Available Not Available No t Available ipratropium bromide 21 mcg (0.03 %) nasal spray [place] 2 sprays 3 times a day by intranasa l route. 2024 active Not Available Not Available Not Avai lable Paxlovid 300 mg (150 mg x 2)-100 mg tablets in a dose pack TK 2 NIRMATREL VIR TS AND 1 RITONAVIR T TOGETHER PO 08/07 completed Not Available Not Available Not Available Vitals None Recorded Social History None recorded. Functional Status None recorded. Mental Status None recorded. Family History Nothing Reported. Medical History Condition Response Depression Y Sleep Disorder Y GERD/Reflux Y Past Encounters Encounter ID Performer Location Encounter Start Date Encounter Closed Date Diagnosis/Indication Diagnosis SNOMED-CT Code Diagnosis ICD10 Code Diagnosis Note [id number] BRITT SHARIF MD [facility] [address] [address] 08/07/2024 14:43:21 08/07/2024 15:18:12 Obstructive sleep apnea syndrome 84905570 G47.33 Chronic rhinitis 8753384 6 J31.0 Asperger's disorder 2356 0001 F84.5 Deviated nasal septum 12 0534693 J34.2 Health Concerns Section Related Observation LastModified by Organization Detai ls LastModified Time None Recorded Concern Status LastModified by Organization Details LastModified Time None Recorded Advance Directives Directive None Recorded Payers Insurance Date Sequence Insurance Name Policy Number Policy Trevizo Covered Member ID Trevizo Member ID Guarantor Name 08/07/2024 1 [place] [facility] Jerald Esparza [id number] Jerald Esparza 08/07/2024 1 [facility] (MEDICAID HMO) [place] Jerald Esparza [id number] Jerald Esparza Notes Date Note Type Note Provider Name and Address Organization Details Recorded Time 08/07/2024 text/html The patient is a 39-year-old male presenting with post-nasal drip. He has a past medical history of Obstructive Sleep Apnea, for which he utilizes a CPAP machine that has been beneficial but does not entirely alleviate his sx. He reports persistent nasal drip since having a severe cold months ago, resulting in daily expectoration of clear, bubbly mucus, particularly upon waking. Fluticasone nasal spray provides temporary relief. No evidence of nasal polyps or growths was found during examination, although a slight nasal passage narrowing was previously noted. His medical history is complicated by Gastroesophageal Reflux Disease, Asperger Syndrome, and depression, with the latter currently causing unrelated mood disturbances. BRITT BOYD MD [address] [place] [address], [phone], [facility] - [facility] 08/07/2024 15:54:17
== END 2024-08-20 15:37 | disposition home or self-care (01) ==
LOC: HO.HPSW 14:57
PROVIDERS: PCP Internal Medicine; Visit Provider Nurse Practitioner Family
DX: G47.33 Obstructive sleep apnea (adult) (pediatric) (principal); J32.9 Chronic sinusitis, unspecified
CPT/HCPCS: 99213

== ENCOUNTER → 2024-08-20 14:56 | Outpatient (BNVA) | payer OTHER, SELFPAY | PROVIDERS: PCP Internal Medicine; Visit Provider Nurse Practitioner Family | DX: G47.33 Obstructive sleep apnea (adult) (pediatric) (principal); J32.9 Chronic sinusitis, unspecified | CPT/HCPCS: 99212 ==

== ENCOUNTER 2025-01-01 10:32 | Outpatient (AMB) | payer OTHER, SELFPAY ==
[2025-01-01 10:35] VITALS: BP 116/82; PULSE 94; O2SAT 97; BMI 39.9
--- NOTE | 2025-01-01 10:35 | A.OFFVIS_ITS ---
Vital Signs 01/01/25 10:35 Height 5 ft 10 in Weight 278 lb 2 oz BMI 39.9 BP 116/82 Blood Pressure Location Rt brachial Position Sitting Pulse 94 Pulse Source Pulse Oximeter Pulse Oximetry (%) 97 Oxygen Delivery Method Room Air Intake Visit Reasons: Obstructive sleep apnea Allergies brompheniramine (From Dimetapp (brompheniramine-PPA)) Adverse Reaction (Verified 01/01/25 10:38) hyperactivity phenylpropanolamine (From Dimetapp (brompheniramine-PPA)) Adverse Reaction (Verified 01/01/25 10:38) hyperactivity HPI HPI Obstructive sleep apnea: Details: Jerald is a pleasant 39 year old male, never smoker, with underlying MARINE, GERD, Asperger's syndrome and obesity. As initially referred by PCP after home sleep study 2022 revealed mild obstructive sleep apnea, AHI 12.5, initially sent for testing due to persistent loud snoring, significant day time fatigue and nonrestorative sleep. He was started on CPAP therapy in APAP mode with pressure is 5-20 cm H2O, [facility]. Due to sensory issues patient has had difficulties using CPAP therapy consistently however continues to report motivation to pursue nightly use. Of note, for the last 2-3 months patient thought [employer] company had ?shut off machine?, but after further investigating there was a connecting part of the CPAP device that was broken. [facility], [place] [facility] [place] He continues to report ongoing post nasal drip and chronic sinusitis, prescribed nasal sprays from ENT and has been using intermittently with good effect. [facility] Medical History (Updated 07/15/24 @ 14:21 by YARELY Millard) Elevated LFTs Asperger's disorder Chronic sinusitis Obstructive sleep apnea Hyperlipidemia Social History Patient Tobacco Use Status: Never used Tobacco Review of Systems Const Denies chills, Denies excessive sweating, Denies fever(s), Denies headache(s) and Denies night sweats Eyes Denies dry eyes, Denies irritation and Denies itchy eyes ENT Reports Normal hearing present, Denies headache(s), Reports nasal congestion, Denies nasal discharge, Denies post nasal drip and Denies sore throat Card Denies chest pain, Denies chest pain at rest, Denies chest pain with activity, Denies claudication, Denies leg edema, Denies dyspnea, Denies dyspnea on exertion, Denies orthopnea and Denies paroxysmal nocturnal dyspnea Resp Denies chest congestion, Denies cough, Denies excessive phlegm production, Denies pain on inspiration, Denies pain with cough, Denies dyspnea, Denies dyspnea on exertion, Denies stridor and Denies wheezing Musc Denies myalgias Neuro Reports Normal hearing present and Denies headache(s) Endo Denies excessive sweating Robert/Lymph Denies lymphadenopathy Aller/Immun Denies itchy eyes, Denies seasonal rhinorrhea and Denies wheezing Physical Exam Vital Signs: Last Vital Signs Pulse 94 01/01/25 10:35 BP 116/82 01/01/25 10:35 Pulse Ox 97 01/01/25 10:35 Oxygen Delivery Method Room Air 01/01/25 10:35 BMI result Body Mass Index 39.9 Const General: cooperative, healthy appearing, comfortable, no acute distress, well developed and alert Nutritional Appearance: obese Orientation/consciousness: patient oriented x3 Limitations: no limitations HEENT Head: Yes normal to inspection, Yes normocephalic and Yes atraumatic Ears: hearing grossly normal bilaterally and external ears normal Eyes General: appearance normal, both eyes and all related structures Eyelids: Yes eyelids normal Sclerae: sclerae normal EOM: EOMs intact bilaterally Neck Neck: Yes normal visual inspection and Yes no lymphadenopathy Lymphatic: no lymphadenopathy noted Chest Chest palpation & inspection: normal inspection of the chest Resp Effort & Inspection: normal respiratory effort, able to speak in complete sentences, no audible wheezes, no cough, no stridor, not tachypneic, no tripod positioning and no use of accessory muscles Auscultation: clear to auscultation bilaterally Cardio Jugular venous distension: no JVD Rate: regular rate Rhythm: regular rhythm Skin Other: warm, dry General skin exam: no rashes or lesions noted Neuro General: patient oriented x3 Cranial nerves: Yes Normal hearing present Cognition (Neuro): normal cognition Gait exam (Neuro): Normal gait present Extrem General: Yes normal to inspection, Yes capillary refill normal, Yes no clubbing, cyanosis or edema and Yes no pedal edema Psych Appearance: grossly normal and well kempt Speech and movement: Normal speech and movement present and Clear speech present Affect: normal affect Attitude: cooperative Thought process: Normal thought process present Thought content: Normal thought content present Insight: Good insight present (Psych) Judgement: Good judgement present (Psych) Assessment & Plan Assessment & Plan (1) Obstructive sleep apnea: Code(s): G47.33 - Obstructive sleep apnea (adult) (pediatric) Category: Medical (2) Chronic sinusitis: Code(s): J32.9 - Chronic sinusitis, unspecified Category: Medical Plan Reviewed CPAP compliance report which again revealed poor compliance. He is aware of insurance compliance criteria and aware he has not been meeting this criteria but is motivated to be more compliant as he continues with daytime fatigue and nonrestorative sleep. [facility] as current machine is malfunctioning. Once he receives he plans to reattempt use. He will continue to follow with ENT for chronic sinusitis. All questions were answered and patient is in agreement of plan. Will follow up in 3 months or sooner if needed. Coding Level of Care Code Est Pt Level 4 (75898) Diagnoses Obstructive sleep apnea G47.33 Chronic sinusitis J32.9
--- OUTSIDE RECORDS SUMMARY | 2025-01-01 12:37 | XMS_ITS | Encounter Summary ---
Author Organization [facility] Address [address] [place] [phone] Phone Care Team Providers Care Burn Table Operator Name Role Phone Jordan Quinones MD Primary Care Provider Unavailabl e Encounter Details Date Type Department Care Team (Late st Contact Info) Description 07/23/2009 Documentation EM Family Medicine [address] [place] [address] Family Medicine, Physician [address] [place], [place] [address] Social History Tobacco Use Types Packs/Day Years [...] on filedocumented in this encounter Care Teams Burn Table Operator Relationship Specialty Start Date End Date Jordan Quinones MD PCP - General 09/16/16 documented as of this encounter
--- OUTSIDE RECORDS SUMMARY | 2025-01-01 12:37 | XMS_ITS | Encounter Summary ---
Author Organization [facility] Address [address] [place] [address] Phone Care Team Providers Care Medical Research Scientist Name Role Phone Jordan Quinones MD Primary Care Provider Unavailabl e Encounter Details Date Type Department Care Team (Late st Contact Info) Description 09/22/2016 Conversion Encounter [facility] - [address] [address] Social History Tobacco Use Types Packs/Day Years [...] on filedocumented in this encounter Care Teams Medical Research Scientist Relationship Specialty Start Date End Date Jordan Quinones MD PCP - General 09/16/16 documented as of this encounter
--- OUTSIDE RECORDS SUMMARY | 2025-01-01 12:37 | XMS_ITS | Clinical Summary ---
Author Organization [facility] Address [address] [place] [phone] Phone Care Team Providers Care Prescriptionist Name Role Phone Jordan Quinones MD Primary [...] 06/02/2008 06/02/1998, 09/05/1996, 08/05/1996, Additional history exists HPV Vaccines (1 - 3-dose SCDM series) 2013 Influenza Vaccines (#1) 2024 COVID-19 Vaccine ( season) 2024 HIB Vaccines Completed 01/05/1990 IPV Vaccines [...] age to complete this topic Care Teams Prescriptionist Relationship Specialty Start Date End Date Jordan Quinones MD PCP - General 09/16/16
--- OUTSIDE RECORDS SUMMARY | 2025-01-01 12:37 | XMS_ITS | Data Portability ---
Author Organization [place] - [facility], Allergy Address [address] [address] Care Team Providers Care Skin Diver Name Role Phone JOANN MARTINEZ Primary Care [...] mcg (0.03 %) nasal spray 2024 025 [facility]/Ph[facility] #[id number], [address] [facility], [place], [address], 15:13:48 Patient TargetsNo targets recorded. Patient Instructions Encounter Date Encounter Id Patient Instructions Last Modified By Organization Details Last Modified Time 08/07/2024 [id number] Please note: Parts of this encounter note [...] Details Recorded Time Obstructive sleep apnea syndrome [id number] Active 2024 BRITT STEVEN MD [address] [facility], [facility] [place], [address], [facility] - [facility] 15:08:56 Chronic rhinitis 85061138 Active 2024 BRITT STEVEN MD 100 [facility], [place], [address], [facility] 15:08:58 Asperger's disorder 52450465 Active 2024 BRITT STEVEN MD 100 [facility], [place], [address], [facility] 15:11:26 Deviated nasal septum 495571417 Active 2024 BRITT STEVEN MD 100 [facility], [facility] [place], [address], [facility] 15:15:07 Problem Notes None recorded. Medical Equipment None Reported. Allergies Allergen ID Allergen Name Allergen Category Reaction Reaction Severity Criticality Documentation Date Start Date Code Code System Note Provider Name and Address Organization Details Recorded Time 989135 brompheni ramine Not available Not available Not available Not available 08/07/2024 1767 RxNorm Arpita stone [facility] 14:50:58 427627 phenylpro panolamin e medicatio n Not available Not available Not available 08/07/2024 8175 RxNorm Arpita stone [facility] 07/02/202 5 14:51:16 Medications Name Sig Start Date Stop [...] bromide 21 mcg (0.03 %) nasal spray [place] 2 sprays 3 times a day by [...] Diagnosis SNOMED-CT Code Diagnosis ICD10 Code Diagnosis IMO Codes Diagnosis Note [id number] BRITT SHARIF MD [facility] [address] [address] 08/07/2024 14:43:21 08/07/2024 15:18:12 Obstructive sleep apnea syndrome 27195013 G47.33 10150 Chronic rhinitis 7846367 6 J31.0 2545 Asperger's disorder 2356 0001 F84.5 124720 Deviated nasal septum 12 2488977 J34.2 35579 Health Concerns Section Related Observation LastModified by Organization Detai ls LastModified Time None Recorded Concern Status LastModified by Organization Details LastModified Time None Recorded Advance Directives Directive None Recorded Payers Insurance Date Sequence Insurance Name Policy Number Policy Trevizo Covered Member ID Trevizo Member ID Guarantor Name 08/07/2024 1 [place] [facility] Jerald Esparza [id number] Jerald Esparza 08/07/2024 1 [facility] PLAN (MEDICAID HMO) ROGE Gurrola Vilma [id number] Jerald Esparza Notes Date Note Type Note Provider Name and Address Organization Details Recorded Time 08/07/2024 text/html ROS as noted in the HPI The patient is a 39-year-old male presenting [...] causing unrelated mood disturbances. BRITT BOYD MD [address] [place] [address], [phone], [facility] - [facility] 08/07/2024 15:54:17
== END 2025-01-01 10:58 | disposition home or self-care (01) ==
LOC: HO.HPSW 10:33
PROVIDERS: PCP Internal Medicine; Visit Provider Nurse Practitioner Family
DX: G47.33 Obstructive sleep apnea (adult) (pediatric) (principal); J32.9 Chronic sinusitis, unspecified
CPT/HCPCS: 99214

== ENCOUNTER → 2025-01-01 10:32 | Outpatient (BNVA) | payer OTHER, SELFPAY | PROVIDERS: PCP Internal Medicine; Visit Provider Nurse Practitioner Family | DX: G47.33 Obstructive sleep apnea (adult) (pediatric) (principal); J32.9 Chronic sinusitis, unspecified; Z99.89 Dependence on other enabling machines and devices | CPT/HCPCS: 99212 ==